=== PATIENT | female | born 1985 | race Caucasian/White ===

== ENCOUNTER → 2021-06-04 | Day surgery (SDC) | payer MEDICARE, OTHER ==
[2021-06-01 09:46] VITALS: BMI 24.0
[~2021-06-04] MED LIST: IV FLUID CONTINUATION 500 ML IV ONE; SODIUM CHLORIDE 0.9% 1,000 ML IV SCH
--- NOTE | 2021-06-04 14:43 | P.EPPROC ---
- EP Procedure Note Electrophysiology Procedure Note: Diagnosis Recurrent dizziness and syncope Twelve-lead EKG Sinus rhythm normal [place] narrow QRS normal ST segments normal axis Tilt table test for protocol Baseline heart rate 66 beats a minute, Baseline blood pressure 119/59 mmHg Patient was tilted upright at medical of 70 per protocol There was an immediate drop in blood pressure by about 10 mmHg systolic without any symptoms. Heart rate in the 70s Thereafter there was a very gradual slow decline in blood pressure over the next 40 minutes Lowest blood pressure recorded was 86/49 mmHg heart rates on 100 beats a minute. She felt dizzy and she stated that it felt that the room was spinning and felt heart and nauseous at this time When she was laid supine her blood pressure increased 222/72 mmHg in the heart rate settled down at 80 beats a minute Impression Mild orthostatic hypotension syndrome/dysautonomia Normal twelve-lead EKG Suggest Increase salt intake Increase fluid intake Avoid medications that provoke orthostasis/avoid vasodilators Continue fludrocortisone low-dose
== END ==
LOC: CATHEP 12:00 → EEVIPCON 12:00
PROVIDERS: ATTEND Internal Medicine Clinical Cardiac Electrophysiology
DX: R42 Dizziness and giddiness (principal); I95.1 Orthostatic hypotension; G90.1 Familial dysautonomia [Riley-Day]; Q90.9 Down syndrome, unspecified; Z82.49 Family history of ischemic heart disease and other diseases of the circulatory system; Z79.899 Other long term (current) drug therapy
CPT/HCPCS: 81025; 93660